=== PATIENT | female | born 2000 | race Caucasian/White ===

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

== ENCOUNTER 2021-03-12 09:48 | Emergency (ER) | payer MEDICAID ==
[~2021-03-12] VITALS: Ht 154.9 cm; Wt 63.5 kg
[2021-03-12 09:48] VITALS: BP_SYST 119
[2021-03-12] MEDS: DECADRON 4 MG TABLET PO SCH (11:44)
[2021-03-12] MEDS ORDERED: DECADRON 4 MG TABLET PO SCH (11:45)
[2021-03-12] MEDS ORDERED: AMOX-520 PO (11:56)
[2021-03-12] MEDS ORDERED: IBUP-1969 PO (11:56)
[2021-03-12 12:30] VITALS: BP_SYST 114
== END 2021-03-12 12:30 | disposition home or self-care (01) ==
LOC: SED 09:48
DX: J02.9 Acute pharyngitis, unspecified (principal)
CPT/HCPCS: 36415; 86403; 87081; 99283; J8540

== ENCOUNTER 2021-04-15 13:02 | Emergency (ER) | payer MEDICAID ==
[~2021-04-15] VITALS: Ht 154.9 cm; Wt 63.5 kg
[~2021-04-15 13:02] MED LIST: AMOX-520 PO; IBUP-1969 PO
[2021-04-15 13:04] VITALS: BP_SYST 130
[2021-04-15] MEDS ORDERED: PRED50TA PO (13:20)
[2021-04-15] MEDS ORDERED: ZIT250 PO (13:20)
[2021-04-15 13:41] VITALS: BP_SYST 124
== END 2021-04-15 13:41 | disposition home or self-care (01) ==
LOC: SED 13:02
DX: J02.9 Acute pharyngitis, unspecified (principal); Z79.899 Other long term (current) drug therapy
CPT/HCPCS: 99283

== ENCOUNTER 2022-12-24 13:43 | Emergency (ER) | payer SELFPAY ==
[~2022-12-24] VITALS: Ht 154.9 cm; Wt 62.1 kg
[~2022-12-24 13:43] MED LIST changes: +PRED50TA PO; +ZIT250 PO
[2022-12-24 14:00] VITALS: BP_SYST 130
[2022-12-24 15:32] LABS: BASOPHILS # (AUTO) 0.1 K/uL (0.0-0.2); BASOPHILS % (AUTO) 0.9 % (0.0-2.0); EOSINOPHILS # (AUTO) 0.3 K/uL (0.0-0.4); EOSINOPHILS % (AUTO) 4.1 % (0.0-4.0); HEMATOCRIT 38.3 % (36-48); HEMOGLOBIN 13.2 g/dL (12.0-16.0); LYMPHOCYTES # (AUTO) 2.4 K/uL (1.0-5.5); MEAN CORPUSCULAR HEMOGLOBIN 29 pg (27-31); MEAN CORPUSCULAR HGB CONC 35 % (32-36); MEAN CORPUSCULAR VOLUME 85 fL (79.0-98.0); MONOCYTES # (AUTO) 0.5 K/uL (0.0-1.0); MONOCYTES % (AUTO) 8.2 % (1.7-9.3); NEUTROPHILS # (AUTO) 3.1 K/uL (1.8-7.7); NEUTROPHILS % (AUTO) 48.8 % (40.0-70.0); PLATELET COUNT (AUTO) 225 K/uL (130-430); RED BLOOD CELL COUNT(AUTO) 4.52 MIL/uL (4.2-6.2); RED CELL DISTRIBUTION WIDTH 13.1 % (9.0-15.0); WHITE BLOOD COUNT (AUTO) 6.4 K/uL (4.8-10.8)
[2022-12-24 15:46] LABS: CALCIUM 9.1 mg/dL (8.4-11.0); CREATININE 0.67 mg/dL (0.55-1.30)
[2022-12-24 15:59] LABS: ALBUMIN 3.8 g/dL (3.4-4.8); TOTAL BILIRUBIN 0.3 mg/dL (0.0-1.0)
[2022-12-24] MEDS ORDERED: NAPR-1172 PO (16:40)
[2022-12-24 17:13] VITALS: BP_SYST 130
== END 2022-12-24 17:13 | disposition home or self-care (01) ==
LOC: SED 13:43
DX: R59.1 Generalized enlarged lymph nodes (principal); R09.81 Nasal congestion; R51.9 Headache, unspecified; Z79.899 Other long term (current) drug therapy
CPT/HCPCS: 36415; 80053; 85025; 99284